=== PATIENT | female | born 1990 | race American Indian/Alaskan Native ===

== ENCOUNTER 2018-10-31 05:00 | Emergency (ER) | payer OTHER ==
[2018-10-31 05:22] VITALS: BP 110/82
[2018-10-31] MEDS ORDERED: NACL 0.9% 1000 ML 1,000 ML IV ONE (07:28)
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
[2018-10-31] MEDS ORDERED: TORADOL IV ONE (08:05)
[2018-10-31] MEDS ORDERED: NORCO 5/325 PO ONE (08:05)
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
[2018-10-31 11:10] LABS: Bacteria,Urine 2+ /HPF (Negative); Bilirubin,Urine NEG (Negative); Blood,Urine NEG (Negative); Color,Urine Amber (Yellow); Mucus,Urine 3+ /HPF
== END 2018-10-31 12:00 ==
LOC: EEVIPCON 05:00 → ED 05:00
DX: M54.5 Low back pain (principal); F17.200 Nicotine dependence, unspecified, uncomplicated
CPT/HCPCS: 36415; 72128; 72131; 81001; 84703; 96374; 99284; J1885; J7030

== ENCOUNTER 2020-11-24 02:08 | Emergency (ER) | payer MEDICAID, OTHER ==
[2020-11-24 02:47] VITALS: BP 132/96
--- NOTE | 2020-11-24 03:04 | Emergency Department Report ---
ED HPI - General Chief complaint: Vaginal Bleeding Stated complaint: 3 MONTHS BLEEDING Source: patient Mode of arrival: Ambulatory Limitations: No Limitations - History of Present Illness Initial comments: 30-year-old -[place] female who is 6 para 3 presents to the emergency room stating she is approximately 3 months and started having spotting about 4 PM today. Patient stated about 10-11 o'clock tonight she started passing clots and having heavier bleeding. Patient states her last menstrual period was September 08, 2020. Patient has not started [employer] and states that she has an appointment this week. Patient denies any complications with her last . MD Complaint: vaginal bleeding -: This afternoon Time: 16:00 Location: pelvis Severity: moderate Quality: cramping Consistency: constant Improves with: none Worsens with: none Associated symptoms: vaginal bleeding Vaginal bleeding: heavy, clots :: Yes Number of weeks : 13 OB History - Current : no complications OB History - Previous Pregnancies: no complications Last menstrual period: 09/08/20 Pre-kathy care: none - Related Data : 6 Para: 3 Allergies Allergy/AdvReac Type Severity Reaction Status Date / Time No Known Allergies Allergy Unverified 11/24/20 02:40 ED Review of Systems ROS: Stated complaint: 3 MONTHS BLEEDING Other details as noted in HPI Comment: All other systems reviewed and negative ED Past Medical Hx - Past Medical History Additional medical history: Anemia - Social History Smoking Status: Never Smoker Substance Use Type: None ED Physical Exam - General Limitations: No Limitations General appearance: alert, in no apparent distress - Head Head exam: Present: atraumatic, normocephalic - Eye Eye exam: Present: normal appearance - ENT ENT exam: Present: mucous membranes moist, normal external ear exam - Neck Neck exam: Present: normal inspection, full ROM - Respiratory Respiratory exam: Absent: respiratory distress, accessory muscle use - Cardiovascular Cardiovascular Exam: Present: regular rate - Extremities Exam Extremities exam: Present: normal inspection, full ROM - Back Exam Back exam: Present: normal inspection, full ROM - Neurological Exam Neurological exam: Present: alert, oriented X3, normal gait - Psychiatric Psychiatric exam: Present: normal affect, normal mood - Skin Skin exam: Present: warm, dry, intact, normal color. Absent: rash ED Course Vital Signs 11/24/20 02:42 Temperature 98.6 F Pulse Rate 78 Respiratory 16 Rate Blood Pressure 132/96 O2 Sat by Pulse 100 Oximetry ED Medical Decision Making - Lab Data Result diagrams: 11/24/20 03:03 11/24/20 03:03 - Medical Decision Making 30-year-old -[place] female who is 6 para 3 presents to the emergency room stating she is approximately 3 months and started having spotting about 4 PM today. Patient stated about 10-11 o'clock tonight she started passing clots and having heavier bleeding. Patient states her last menstrual period was September 08, 2020. Patient has not started [employer] and s tates that she has an appointment this week. Patient denies any complications with her last . Vaginal bleeding protocol has been ordered. Ultrasound has been ordered. Critical care attestation.: If time is entered above; I have spent that time in minutes in the direct care of this critically ill patient, excluding procedure time. ED Disposition Clinical Impression: Negative test Disposition: DC-01 TO HOME OR SELFCARE Is pt being admited?: No Does the pt Need Aspirin: No Condition: Stable Additional Instructions: test is negative ultrasound is negative for any . You are having your menstrual cycle. Follow-up with a primary [employer]. Referrals: PRIMARY CAREMD [Primary Care Provider] - 3-5 Days [facility] [Provider Group] - 3-5 Days [facility] [Provider Group] - 3-5 Days
[2020-11-24 03:39] LABS: BUN/Creatinine Ratio 8; Blood Urea Nitrogen 6 mg/dL (7-17); Calcium 9.3 mg/dL (8.4-10.2); Hemolysis Index 0
[2020-11-24 03:58] LABS: Basophils % (Auto) 0.6 % (0.0-1.8); Eosinophils # (Auto) 0.1 K/mm3 (0.0-0.4); Eosinophils % (Auto) 1.3 % (0.0-4.3); Hemoglobin 9.9 gm/dl (10.1-14.3); Lymphocytes # (Auto) 2.1 K/mm3 (1.2-5.4); Lymphocytes % (Auto) 34.5 % (13.4-35.0); Mean Corpuscular HGB Conc 31 % (30-34); Mean Corpuscular Volume 76 fl (79-97); Monocytes # (Auto) 0.5 K/mm3 (0.0-0.8); Monocytes % (Auto) 8.3 % (0.0-7.3); Platelet Count 298 K/mm3 (140-440); Red Blood Count 4.22 M/mm3 (3.65-5.03)
--- NOTE | 2020-11-24 04:47 | Ultrasound Report ---
ULTRASOUND OBSTETRIC INDICATION / CLINICAL INFORMATION: vaginal bleeding and preg. Clinical Gestational Age (GA): 11 weeks 0 days TECHNIQUE: Transabdominal and Transvaginal. COMPARISON: None available. FINDINGS: UTERUS: The uterus is retroverted and retroflexed, measuring up to 7.7 x 4.7 x 4.7 cm. The endometriu m measures 1.5 cm in thickness. There is no evidence of an intrauterine gestational sac. ADNEXA: The right ovary is unremarkable. Several simple cysts are noted in the left ovary, the larges t measuring up to 3.5 cm. There is no adnexal mass. FREE FLUID: Trace. ADDITIONAL FINDINGS: None. IMPRESSION: 1. No evidence of an intrauterine gestational sac at this time. Recommend correlation with serial hCG and follow-up ultrasound as needed. 2. Several benign simple cysts in the left ovary, the largest measuring up to 3.5 cm. Signer Name: Mellisa Luis MD Signed: 11/24/2020 4:43 AM Workstation Name: [id number][id number]
== END 2020-11-24 05:30 | disposition home or self-care (01) ==
LOC: ED 02:08
DX: Z32.02 Encounter for pregnancy test, result negative (principal)
CPT/HCPCS: 36415; 76801; 76817; 80048; 84702; 85025; 86900; 86901